=== PATIENT | male | born 1985 | race African-American/Black ===

== ENCOUNTER 2019-08-09 23:57 | Emergency (ER) | payer SELFPAY ==
[~2019-08-09] VITALS: Ht 190.5 cm; Wt 91.0 kg
[2019-08-10] MEDS ORDERED: TETANUS, DIPHTHERIA, PERTUSSIS VAC/PF 0.5ML (>7YR OLD) IM ONE (00:45)
[2019-08-10] MEDS ORDERED: SILVER SULFADIAZINE 1% CREAM 50GM TOP SCH (00:45)
[2019-08-10] MEDS ORDERED: HYDROCODONE/ACETAMINOPHEN 10/325MG TABLET PO ONE (00:45)
[2019-08-10 01:49] VITALS: BP 100/68
== END 2019-08-10 01:56 | disposition home or self-care (01) ==
LOC: ER 08-10 00:12
DX: T23.252A Burn of second degree of left palm, initial encounter (principal); T23.202A Burn of second degree of left hand, unspecified site, initial encounter; T23.201A Burn of second degree of right hand, unspecified site, initial encounter; T31.0 Burns involving less than 10% of body surface; X08.8XXA Exposure to other specified smoke, fire and flames, initial encounter; Y93.89 Activity, other specified; Y92.89 Other specified places as the place of occurrence of the external cause; Y99.8 Other external cause status
CPT/HCPCS: 16000; 90471; 90715; 99291

== ENCOUNTER 2019-10-24 13:41 | Emergency (ER) | payer MEDICAID ==
[~2019-10-24] VITALS: Ht 190.5 cm; Wt 91.0 kg
[2019-10-24 13:43] VITALS: BP 125/86
[2019-10-24] MEDS ORDERED: HYDROCODONE/ACETAMINOPHEN 5/325MG TABLET PO ONE (15:15)
== END 2019-10-24 16:07 | disposition home or self-care (01) ==
LOC: ER 13:41
DX: M54.6 Pain in thoracic spine (principal)
CPT/HCPCS: 99281; 99283

== ENCOUNTER 2019-11-27 10:41 | Emergency (ER) | payer MEDICAID ==
[~2019-11-27] VITALS: Ht 188 cm; Wt 78.0 kg
[2019-11-27 10:43] VITALS: BP 123/91
== END 2019-11-27 11:54 | disposition home or self-care (01) ==
LOC: ER 10:41
DX: M54.32 Sciatica, left side (principal)
CPT/HCPCS: 99281

== ENCOUNTER 2020-01-06 05:29 | Emergency (ER) | payer MEDICAID ==
[~2020-01-06] VITALS: Ht 190.5 cm; Wt 91.0 kg
[2020-01-06] MEDS ORDERED: FLUORESCEIN SODIUM 1MG/STRIP LEFTEYE ONE (06:45)
[2020-01-06] MEDS ORDERED: TETRACAINE 0.5% OPHTH DROPS 4ML LEFTEYE ONE (06:45)
[2020-01-06 07:09] VITALS: BP 121/69
== END 2020-01-06 07:09 | disposition home or self-care (01) ==
LOC: ER 05:29
DX: S00.202A Unspecified superficial injury of left eyelid and periocular area, initial encounter (principal); X58.XXXA Exposure to other specified factors, initial encounter; Y93.89 Activity, other specified; Y92.89 Other specified places as the place of occurrence of the external cause; Y99.8 Other external cause status
CPT/HCPCS: 99283

== ENCOUNTER 2020-03-19 16:09 | Emergency (ER) | payer MEDICAID ==
[~2020-03-19] VITALS: Ht 198.1 cm; Wt 90.0 kg
[2020-03-19] MEDS ORDERED: ACETAMINOPHEN 325MG TABLET PO ONE (16:45)
[2020-03-19 17:49] VITALS: BP 125/82
== END 2020-03-19 17:52 | disposition home or self-care (01) ==
LOC: ER 16:09
DX: M25.512 Pain in left shoulder (principal); R20.0 Anesthesia of skin
CPT/HCPCS: 71045; 73030; 99284; A4565